=== PATIENT | female | born 1935 | race Caucasian/White ===

== ENCOUNTER 2017-06-15 16:45 | Inpatient (IN) | payer MEDICARE ==
[2017-06-15] MEDS ORDERED: Acetaminophen 650 MG Suppository ONE (17:45)
[2017-06-15] MEDS ORDERED: Acetaminophen 325 MG Suppository ONE (17:45)
[2017-06-15 17:46] LABS: #Eosinphils 0.1 thou/uL (0.0-0.7); #Lymphocytes 0.6 thou/uL (1.20-3.40); #Monocytes 0.5 thou/uL (0.11-0.59); #Neutrophils 8.6 thou/uL (1.40-6.50); %Basophils 0.3 % (0.0-1.0); %Eosinophils 0.9 % (0.0-10.0); %Lymphocytes 6.2 % (21.0-51.0); %Monocytes 4.6 % (0.0-10.0); %Neutrophils 88.1 % (42.0-75.0); Hemoglobin 11.9 g/dL (12.0-16.0); Mean Corpuscular HGB CONC 31.4 g/dL (32.0-36.0); Mean Corpuscular Hemoglobin 26.8 pg (27.0-31.0); Mean Corpuscular Volume 85.3 fl (81.0-99.0); Platelet Count 460 thou/uL (130-400); RBC Distribution Width 12.5 % (11.5-14.5); Red Blood Cell (RBC) Count 4.43 mill/uL (4.20-5.40); White Blood Cell (WBC) Count 9.8 thou/uL (4.8-10.8)
[2017-06-15 18:08] LABS: ALT (SGPT) 14 U/L (8-55); AST (SGOT) 23 U/L (5-34); Albumin 3.4 g/dL (3.4-4.8); Alkaline Phosphatase 77 U/L (40-150); Anion Gap 14 mmol/L (10-20); BUN (Urea Nitrogen) 11 mg/dL (9.8-20.1); Bilirubin, Total 0.5 mg/dL (0.2-1.2); CK (CPK) 118 U/L (29-168); Calc. Creatinine Clearance 0 mL/min (70-130); Calcium 8.8 mg/dL (7.8-10.44); Carbon Dioxide 28 mmol/L (23-31); Chloride 99 mmol/L (98-107); Estimated GFR-MDRD 87; Globulin 2.7 g/dL (2.4-3.5); Glucose 113 mg/dL (83-110); Protein, Total 6.1 g/dL (6.0-8.3); Sodium 138 mmol/L (136-145)
[2017-06-15 18:11] LABS: CKMB 2.1 ng/mL (0-6.6); Potassium 2.7 mmol/L (3.5-5.1)
[2017-06-15 18:28] LABS: Bilirubin Negative (Negative); Blood, Urine Negative (Negative); Clarity CLEAR (Clear); Glucose, Urine (Dipstick) Negative (Negative); Leukocyte Negative (Negative); Nitrite Negative (Negative); Protein, Urine (Dipstick) Negative (Neg-Trace); Specific Gravity, Urine 1.019 (1.002-1.036)
[2017-06-15] MEDS ORDERED: Piperacillin/Tazobactam 3.375 GM in Sodium Chloride 0.9% 100 ML IVPB SCH ×2 (18:30→23:59)
--- NOTE | 2017-06-15 19:13 | RAD ---
CHEST ONE VIEW: History: Cough and fever. Comparison: 08-12-16 FINDINGS: Small effusions. No pneumothorax. Heart size upper limits of normal. Likely ectatic vasculature in the right paratracheal region. There is some nodularity in the left lung base. IMPRESSION: 1. Small effusions. 2. Nodularity in the left lung base may reflect consolidation. There is also similar airspace consoli dation in the peripheral aspect of the right middle lobe. This is concerning for pneumonia. POS: [facility]
[2017-06-15] MEDS ORDERED: Potassium Chloride 20 MEQ TAB ONE (19:34)
[2017-06-15] MEDS ORDERED: Haloperidol Lactate 5 MG/ML VIAL SLOW IVP PRN (21:09)
[2017-06-15] MEDS ORDERED: Benzonatate 100 MG CAP PO PRN (21:09)
[2017-06-15] MEDS ORDERED: hydrALAZINE 20 MG/ML VIAL SLOW IVP PRN (21:09)
[2017-06-15] MEDS ORDERED: Acetaminophen 325 MG TAB PO PRN (21:09)
[2017-06-15] MEDS ORDERED: Ondansetron HCl/PF 4 MG/2 ML Vial IVP PRN (21:09)
[2017-06-16 00:30] LABS: Troponin I 0.075 ng/mL (< 0.028)
--- NOTE | 2017-06-16 00:59 | HP ---
CHIEF COMPLAINT: Shortness of breath, fever and altered mental state. HISTORY OF PRESENT ILLNESS: This is an 82-year-old resident of [facility], who comes into the hosp ital with altered mental state, fever and shortness of breath. It was associated with increased weak ness as well. The patient right now is altered mental state and most of the history is obtained from the ER physician and the chart. There is no family in the room. The patient according to the ER ph ysician was tachypneic, breathing at 35 to 48; and however, had a fever of 101 and was satting 90% on room air. The patient has been admitted for further evaluation and treatment of the pneumonia, whic h was seen in the right middle lobe on the chest x-ray. PAST MEDICAL HISTORY: Significant for coronary artery disease, GERD, hyperlipidemia, hypertension, a nd dementia. PAST SURGICAL HISTORY: Significant for hysterectomy, PTCA, surgery and left femoral neck fract ure. FAMILY HISTORY: Negative for diabetes and hypertension. SOCIAL HISTORY: Lives in a retirement. No history of smoking, drinking, or doing recreational roby gs. MEDICATIONS: Please see MAR. ALLERGIES: HYDROCODONE, KEFLEX, MORPHINE, PEANUTS, CRAB MEAT and SULFA. REVIEW OF SYSTEMS: Cannot be obtained as the patient is confused. PHYSICAL EXAMINATION: VITAL SIGNS: Blood pressure is 143/95. GENERAL: The patient is lying in bed, right now in no respiratory distress, was in respiratory distr ess earlier and has improved after breathing treatment. HEENT: His head is atraumatic, normocephalic. Pupils are equally round and reactive to light. Extr aocular movements are intact. Mucous membranes are moist. NECK: No JVD. CHEST: Breath sounds heard. Rhonchi present. Dependent crackles present. The patient was tachypne ic earlier at the examination of the ER physician. HEART: S1, S2 normal. No murmurs or gallops. ABDOMEN: Soft, obese. EXTREMITIES: No cyanosis, clubbing, or edema. Distal pulses present. NEUROLOGIC: The patient moves all 4 extremities, a little confused and does not follow commands. DIAGNOSTIC DATA: Chest x-ray shows small bilateral pleural effusions left lower lobe infiltrate and right middle lobe infiltrate. LABORATORY DATA: WBC count is 9.8, hemoglobin is 11. Potassium is 2.7, creatinine is 0.6. UA is ne gative. BNP is 208. Flu was positive for flu A. Chest x-ray show right middle lobe pneumonia. ASSESSMENT AND PLAN: 1. Sepsis secondary to community-acquired pneumonia secondary to the flu A. The patient will be put on Tamiflu and IV antibiotics. Blood cultures and urine cultures will be drawn and sputum culture w ill be done. Neb treatments will be given. We will follow the cultures and optimize the treatment. 2. Dementia probably altered mental state. The patient already has baseline dementia probably the p atient has a toxic encephalopathy secondary to the presence of infection. We will wait for the clear ing of the infection and reassess mental status. 3. Coronary artery disease, stable. 4. Hypertension, stable. 5. Hypokalemia, we will replace that. 6. Hyperlipidemia, stable. 7. Sequential compression devices for deep venous thrombosis prophylaxis. We will monitor the patient and do the need for.
[2017-06-16] MEDS: Albuterol Sulfate 1.25 MG/3 ML NEB NEB SCH ×4 (01:50→19:12)
[2017-06-16 04:25] LABS: #Basophils 0.1 thou/uL (0.0-0.2); #Lymphocytes 0.9 thou/uL (1.20-3.40); #Monocytes 0.5 thou/uL (0.11-0.59); #Neutrophils 5.4 thou/uL (1.40-6.50); %Basophils 0.8 % (0.0-1.0); %Eosinophils 0.7 % (0.0-10.0); %Lymphocytes 12.5 % (21.0-51.0); %Monocytes 7.4 % (0.0-10.0); %Neutrophils 78.7 % (42.0-75.0); Hemoglobin 10.1 g/dL (12.0-16.0); Mean Corpuscular HGB CONC 31.1 g/dL (32.0-36.0); Mean Corpuscular Hemoglobin 26.9 pg (27.0-31.0); Mean Corpuscular Volume 86.5 fl (81.0-99.0); Mean Platelet Volume 6.7 fL (7.4-10.4); Platelet Count 372 thou/uL (130-400); RBC Distribution Width 12.6 % (11.5-14.5); Red Blood Cell (RBC) Count 3.75 mill/uL (4.20-5.40); White Blood Cell (WBC) Count 6.8 thou/uL (4.8-10.8)
[2017-06-16 04:43] LABS: Anion Gap 12 mmol/L (10-20); BUN (Urea Nitrogen) 11 mg/dL (9.8-20.1); Calc. Creatinine Clearance 0 mL/min (70-130); Calcium 8.2 mg/dL (7.8-10.44); Carbon Dioxide 31 mmol/L (23-31); Chloride 101 mmol/L (98-107); Estimated GFR-MDRD 77; Glucose 85 mg/dL (83-110); Sodium 141 mmol/L (136-145)
[2017-06-16 05:04] LABS: Potassium 2.9 mmol/L (3.5-5.1)
[2017-06-16] MEDS: Potassium Chloride 20 MEQ TAB PO SCH ×3 (07:15→16:13)
[2017-06-16] MEDS ORDERED: Albuterol Sulfate 1.25 MG/3 ML NEB ONE ×2 (07:33→14:07)
[2017-06-16] MEDS: Docusate 100 MG CAP PO SCH ×4 (09:00→21:28)
[2017-06-16] MEDS: Sodium Chloride 0.9% 1,000 ML IV SCH ×3 (11:59→21:32)
[2017-06-16] MEDS: Oseltamivir 75 MG CAP PO SCH ×3 (11:59→21:28)
[2017-06-16 12:01] VITALS: BMI 25.7
[2017-06-16] MEDS: cefTRIAXone\\ROCEPHIN 2 GM in Sodium Chloride 0.9% 100 ML IVPB SCH (13:05)
[2017-06-16] MEDS ORDERED: Potassium Chloride 20 MEQ TAB ONE ×2 (13:14→16:06)
[2017-06-16] MEDS ORDERED: Acetaminophen 325 MG TAB ONE (13:15)
--- NOTE | 2017-06-16 13:20 | PDOC.PN ---
- Subjective Encounter Start Date: 06/16/17 Encounter Start Time: 11:30 Pt seen in ER holding, admitted overnight for pna, sepsis. Since then, Flu A positive, on Tmaiflu and was on zosyn and levoflox, narrows to Levoflox and rocephin. Still with sporadic fevers, currently 100.8, cough productive of green sputum. no n/v, no Chills, no CP, no d/C, some muscle aches. Pt states that overall she feels better, wa weaned off of O2 ealrier. Daughter at bedside, updated. 10 point ROS performed and neg for all systems except as above - Objective MAR Reviewed: Yes Vital Signs & Weight: Vital Signs (12 hours) Temp Pulse Resp BP Pulse Ox 06/16/17 09:35 100.8 F H 67 16 137/77 06/16/17 08:00 74 19 126/70 94 L 06/16/17 07:47 63 16 95 06/16/17 01:50 80 16 99 Weight Weight 145 lb Result Diagrams: 06/16/17 04:12 06/16/17 04:12 Radiology Reviewed by me: Yes EKG Reviewed by me: Yes Phys Exam - Physical Examination Constitutional: NAD HEENT: PERRLA, moist MMs, sclera anicteric, oral pharynx no lesions Neck: no nodes, no JVD, supple, full ROM bibasilar rales, good air movement, strong cough, no wheezing Cardiovascular: RRR, no significant murmur, no rub Gastrointestinal: soft, non-tender, no distention, positive bowel sounds Musculoskeletal: pulses present, edema present Neurological: non-focal, normal sensation, moves all 4 limbs Lymphatic: no nodes Psychiatric: normal affect Skin: no rash, normal turgor, cap refill <2 seconds Dx/Plan (1) Influenza A Code(s): J10.1 - FLU DUE TO OTH IDENT INFLUENZA VIRUS W OTH RESP MANIFEST Status: Acute Comment: Tamiflu BID X 7 days (2) Community acquired pneumonia due to influenza A virus Code(s): J09.X1 - INFLUENZA DUE TO IDENT NOVEL INFLUENZA A VIRUS W PNEUMONIA Status: Acute Comment: covering for CAP with CTX and levoflox, stop CTX tomorrow (3) Sepsis Code(s): A41.9 - SEPSIS, UNSPECIFIED ORGANISM Status: Acute Plan: influenza A (4) Alzheimer's dementia Code(s): G30.9 - ALZHEIMER'S DISEASE, UNSPECIFIED Status: Chronic Qualifiers: Alzheimer's disease onset: unspecified onset Dementia behavioral disturbance: without behavioral disturbance Qualified Code(s): G30.9 - Alzheimer's disease, unspecified; F02.80 - Dementia in other diseases classified elsewhere without behavioral disturbance; F02.80 - Dementia in other diseases classified elsewhere without behavioral disturbance; F02.80 - Dementia in other diseases classified elsewhere without behavioral disturbance (5) History of coronary artery disease Code(s): Z86.79 - PERSONAL HISTORY OF OTHER DISEASES OF THE CIRCULATORY SYSTEM Status: Chronic (6) HTN (hypertension) Code(s): I10 - ESSENTIAL (PRIMARY) HYPERTENSION Status: Chronic Qualifiers: Hypertension type: essential hypertension Qualified Code(s): I10 - Essential (primary) hypertension - Plan cont current plan of care, plan discussed w/ family, continue antibiotics, PT/OT , respiratory therapy, DVT proph w/lovenox * .
[2017-06-16] MEDS ORDERED: Albuterol Sulfate 2.5 mg/3 ml Neb NEB PRN (13:26)
[2017-06-17] MEDS: Albuterol Sulfate 1.25 MG/3 ML NEB NEB SCH ×4 (00:04→18:41)
[2017-06-17 05:39] LABS: #Lymphocytes 1.1 thou/uL (1.20-3.40); #Monocytes 0.4 thou/uL (0.11-0.59); #Neutrophils 3.5 thou/uL (1.40-6.50); %Basophils 0.3 % (0.0-1.0); %Eosinophils 0.5 % (0.0-10.0); %Lymphocytes 21.7 % (21.0-51.0); %Monocytes 7.9 % (0.0-10.0); %Neutrophils 69.6 % (42.0-75.0); Hemoglobin 10.3 g/dL (12.0-16.0); Mean Corpuscular HGB CONC 30.2 g/dL (32.0-36.0); Mean Corpuscular Hemoglobin 25.9 pg (27.0-31.0); Mean Corpuscular Volume 85.8 fl (81.0-99.0); Mean Platelet Volume 6.9 fL (7.4-10.4); Platelet Count 375 thou/uL (130-400); RBC Distribution Width 12.7 % (11.5-14.5); Red Blood Cell (RBC) Count 3.98 mill/uL (4.20-5.40)
[2017-06-17 06:00] LABS: Anion Gap 14 mmol/L (10-20); BUN (Urea Nitrogen) 7 mg/dL (9.8-20.1); Calc. Creatinine Clearance 74 mL/min (70-130); Calcium 7.8 mg/dL (7.8-10.44); Carbon Dioxide 27 mmol/L (23-31); Chloride 101 mmol/L (98-107); Estimated GFR-MDRD Greater than 90; Glucose 74 mg/dL (83-110); Magnesium 1.4 mg/dL (1.6-2.6); Potassium 3.6 mmol/L (3.5-5.1); Sodium 138 mmol/L (136-145)
[2017-06-17] MEDS ORDERED: Magnesium Sulfate 3 GM in Sodium Chloride 0.9% 100 ML IVPB SCH (08:15)
[2017-06-17] MEDS: cefTRIAXone\\ROCEPHIN 2 GM in Sodium Chloride 0.9% 100 ML IVPB SCH (08:32)
[2017-06-17] MEDS: Docusate 100 MG CAP PO SCH ×2 (08:33→21:17)
[2017-06-17] MEDS: Oseltamivir 75 MG CAP PO SCH ×2 (08:33→21:17)
[2017-06-17] MEDS: Sodium Chloride 0.9% 1,000 ML IV SCH ×2 (08:33→16:18)
[2017-06-17] MEDS ORDERED: Prevnar 13-Val Conj/PF 0.5 ML SYRINGE IM ONE (09:00)
--- NOTE | 2017-06-17 14:00 | CON ---
DATE OF CONSULTATION: 06/17/2017 REASON FOR CONSULTATION: Pneumonia. HISTORY OF PRESENT ILLNESS: An 82-year-old with history of dementia, most likely due to Alzheimer di sease, coronary disease, and prior fractures in upper and lower extremities, who is a [facility] and developed weakness, delirium associated with fever and tachypnea. Initial find ings; blood pressure 143/95, pulse 76, respiratory rate 20, temperature 101, O2 sat 90% room air. Ac cording to the nursing staff, there had been no diarrhea. No seizure activity, no fall. 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 FAMILY HISTORY: Noncontributory. SOCIAL HISTORY: group home resident. Never a smoker. CURRENT MEDICATIONS: Tylenol, albuterol, Ventolin, Tessalon, ceftriaxone, Colace, Haldol, Apresoline , levofloxacin, magnesium, Namenda, Zofran, Tamiflu PHYSICAL EXAMINATION: VITAL SIGNS: T-max 101.2. She is now down to 99.2, blood pressure 160/77, pulse 65, respirations 18 , O2 saturation 98%. GENERAL: Appears in no distress, coughing intermittently. She is unable to interact with examiner d ue to the cognitive dysfunction. Her daughter is in the room. The patient has one area in the back of slight pressure damage in the presacral region. This is very early on. Peripheral IV access. Sh e is voiding spontaneously. No lymphadenopathy. HEENT: Ocular movements are conjugate. The patient has a few remaining teeth in the lower mandible. NECK: Supple neck. HEART: S1, S2, regular rate. No S3 or S4. ABDOMEN: Soft. LUNGS: With symmetric air entry with few crackles at the right base. : No bladder distention. EXTREMITIES: No joint inflammatory activity. She has somewhat diffuse stiffness. She is able to mo ve extremities. NEUROLOGIC: Plantar responses are flexure. She is awake, does not interact with examiner. Does not establish eye contact. Does not follow commands. LABORATORY DATA: White cell count 9.8 and now only 5.0, hemoglobin down to 10.3, MCV 85, platelets 3 75. Normal differential, on arrival she had 88% neutrophils. Chemistry was fairly unremarkable exce pt for hypomagnesemia. The liver panel is normal. Troponin a little bit high, BNP a little bit high , albumin 3.4. Urinalysis fairly unremarkable. Microbiology with influenza A antigen test positive. Urine culture no growth. No blood cultures submitted. Chest x-ray with small effusions, nodularity left lung base and also in the peripheral aspect right m iddle lobe. ASSESSMENT: 1. Dementia. 2. Acute influenza A infection. 3. Possible associated bacterial pneumonia. Discontinue levofloxacin. Continue Rocephin alone for a few days and then discontinue it. Continue Tamiflu for 5 days. Swallowing study should be considered.
--- NOTE | 2017-06-17 14:29 | PDOC.PN ---
- Subjective Encounter Start Date: 06/17/17 Encounter Start Time: 10:00 feeling better, MS back to baseline, no F/C overnight, VSS. No N/V/D/C, no C, no SOB, [place] O2. ST to see, PT OT pending 10 point ROS performed and neg for all systems except as above. - Objective MAR Reviewed: Yes Vital Signs & Weight: Vital Signs (12 hours) Temp Pulse Resp BP Pulse Ox 06/17/17 12:00 92 L 06/17/17 11:44 98.6 F 63 20 163/84 H 95 06/17/17 08:01 99.2 F 65 18 167/77 H 98 06/17/17 08:00 99.2 F 65 18 98 06/17/17 07:37 67 16 94 L 06/17/17 04:23 98.9 F 71 18 153/68 H 97 Weight Admit Weight 145 lb Weight 145 lb Result Diagrams: 06/17/17 05:03 06/17/17 05:03 Radiology Reviewed by me: Yes EKG Reviewed by me: Yes Phys Exam - Physical Examination Constitutional: NAD HEENT: PERRLA, moist MMs, sclera anicteric, oral pharynx no lesions Neck: no nodes, no JVD, supple, full ROM Respiratory: no wheezing, no rales, no rhonchi, clear to auscultation bilateral Cardiovascular: RRR, no significant murmur, no rub Gastrointestinal: soft, non-tender, no distention, positive bowel sounds Musculoskeletal: no edema, pulses present Neurological: non-focal, normal sensation, moves all 4 limbs Lymphatic: no nodes Psychiatric: normal affect Skin: no rash, normal turgor, cap refill <2 seconds Dx/Plan (1) Influenza A Code(s): J10.1 - FLU DUE TO OTH IDENT INFLUENZA VIRUS W OTH RESP MANIFEST Status: Acute Comment: Tamiflu BID X 5 days total, 2 to go (2) Community acquired pneumonia due to influenza A virus Code(s): J09.X1 - INFLUENZA DUE TO IDENT NOVEL INFLUENZA A VIRUS W PNEUMONIA Status: Acute Comment: covering for CAP with CTX and levoflox, levoflox stopped by ID, i assume consulted on admit. on CTX alone (3) Sepsis Code(s): A41.9 - SEPSIS, UNSPECIFIED ORGANISM Status: Acute Comment: influenza A (4) Alzheimer's dementia Code(s): G30.9 - ALZHEIMER'S DISEASE, UNSPECIFIED Status: Chronic Qualifiers: Alzheimer's disease onset: unspecified onset Dementia behavioral disturbance: without behavioral disturbance Qualified Code(s): G30.9 - Alzheimer's disease, unspecified; F02.80 - Dementia in other diseases classified elsewhere without behavioral disturbance; F02.80 - Dementia in other diseases classified elsewhere without behavioral disturbance; F02.80 - Dementia in other diseases classified elsewhere without behavioral disturbance (5) History of coronary artery disease Code(s): Z86.79 - PERSONAL HISTORY OF OTHER DISEASES OF THE CIRCULATORY SYSTEM Status: Chronic (6) HTN (hypertension) Code(s): I10 - ESSENTIAL (PRIMARY) HYPERTENSION Status: Chronic Qualifiers: Hypertension type: essential hypertension Qualified Code(s): I10 - Essential (primary) hypertension - Plan cont current plan of care, continue antibiotics, PT/OT, speech therapy, out of bed/ambulate * .
[2017-06-18] MEDS: Albuterol Sulfate 1.25 MG/3 ML NEB NEB SCH ×2 (00:33→08:07)
[2017-06-18] MEDS: Sodium Chloride 0.9% 1,000 ML IV SCH (02:22)
[2017-06-18 05:43] LABS: #Basophils 0.1 thou/uL (0.0-0.2); #Monocytes 0.3 thou/uL (0.11-0.59); #Neutrophils 2.4 thou/uL (1.40-6.50); %Basophils 1.7 % (0.0-1.0); %Eosinophils 1.3 % (0.0-10.0); %Lymphocytes 25.3 % (21.0-51.0); %Monocytes 8.9 % (0.0-10.0); %Neutrophils 62.8 % (42.0-75.0); Hemoglobin 11.4 g/dL (12.0-16.0); Mean Corpuscular HGB CONC 32.1 g/dL (32.0-36.0); Mean Corpuscular Hemoglobin 27.5 pg (27.0-31.0); Mean Corpuscular Volume 85.6 fl (81.0-99.0); Mean Platelet Volume 7.2 fL (7.4-10.4); Platelet Count 356 thou/uL (130-400); RBC Distribution Width 12.7 % (11.5-14.5); Red Blood Cell (RBC) Count 4.15 mill/uL (4.20-5.40); White Blood Cell (WBC) Count 3.9 thou/uL (4.8-10.8)
[2017-06-18 06:25] LABS: Anion Gap 13 mmol/L (10-20); BUN (Urea Nitrogen) 5 mg/dL (9.8-20.1); Calc. Creatinine Clearance 79 mL/min (70-130); Calcium 7.8 mg/dL (7.8-10.44); Carbon Dioxide 26 mmol/L (23-31); Chloride 102 mmol/L (98-107); Estimated GFR-MDRD Greater than 90; Glucose 74 mg/dL (83-110); Magnesium 1.9 mg/dL (1.6-2.6); Potassium 3.1 mmol/L (3.5-5.1); Sodium 138 mmol/L (136-145)
[2017-06-18 07:54] VITALS: BP 141/78; TEMP 98
[2017-06-18] MEDS: cefTRIAXone\\ROCEPHIN 2 GM in Sodium Chloride 0.9% 100 ML IVPB SCH (09:35)
[2017-06-18] MEDS: Docusate 100 MG CAP PO SCH (09:38)
[2017-06-18] MEDS: Oseltamivir 75 MG CAP PO SCH (09:38)
--- NOTE | 2017-06-19 15:10 | DIS ---
DATE OF ADMISSION: 06/15/2017 DATE OF DISCHARGE: 06/18/2017 PRIMARY CARE PHYSICIAN: Chano Duenas M.D. DISCHARGE DIAGNOSES: 1. Influenza A. 2. Community-acquired pneumonia secondary to influenza A. 3. Sepsis, present on admission. 4. Alzheimer's type dementia. 5. Coronary artery disease, history without angina. 6. Hypertension, essential, chronic. CONSULTATIONS: Dr. Reggie Tuttle on 06/17/2017. HISTORY AND PHYSICAL: Ms. Saunders is an 82-year-old female with the above history who presents to [facility] emergency department with shortness of breath, fever, and altered mental state on 06/15/2017. She lives in [facility], who came to the hospital with his altered mental status, fever, shortness of breath with weakness. Originally on arrival, she was tachypneic, breathing 35-48. She had a tempera ture of 101 with satting 90% on room air, recently being called for admission. HOSPITAL COURSE: The patient was seen and examined by Dr. Almonte. She was started on Levaquin and Tamiflu due to a chest x-ray being positive for right middle lobe pneumonia and flu screen posit smooth for flu A. She was given neb treatments. Started on IV fluids, and placed in inpatient service. Overnight 06/16/2017 to 06/17/2017, I took over the case. The patient was seen initially by Dr. Blanchard s the day as admitting physician had requested. He recommended stopping the Levaquin and going to ce ftriaxone alone for a few days, continue the Tamiflu. Later that day, the patient was doing better. From 06/16/2017 to 06/17/2017, patient does not have any further problem. She is afebrile. Mental s tatus back to baseline. She was tolerating p.o. Speech therapy, PT and OT were pending. By 06/18/2017, she remained normal. She was cleared for PT, OT, and ST with normal function. She wa s discharged back to [facility] in stable condition. Patient was seen and examined on the day of discharge. Discharge plan and disposition was discussed with the patient face to face at the bedside with the kev aranda. DISCHARGE MEDICATIONS: 1. Tessalon Perles 100 mg p.o. q.4 hours p.r.n. 2. Levofloxacin 500 mg daily for 4 more days. 3. Oseltamivir 75 mg p.o. b.i.d. to complete a total of 10 doses. To resume her regular home medications including, 1. Cholecalciferol 1000 units daily. 2. Zoloft 25 mg daily. 3. MiraLax 17 grams daily p.r.n. 4. Memantine 10 mg p.o. b.i.d. 5. Tylenol regular strength as needed. 6. Ascorbic acid 500 mg b.i.d. 7. Aspirin 81 mg daily. 8. Dulcolax 100 mg daily. 9. Fergon 324 mg p.o. b.i.d. 10. Magnesium hydroxide 30 mL p.o. daily as needed for constipation. 11. Multivitamin daily. 12. Zofran 4 mg q.6 hours p.r.n. 13. Guaifenesin/dextromethorphan 10 mL q.4 hours p.r.n. 14. Omeprazole 20 mg daily. 15. Mirtazapine 50 mg p.o. at bedtime. 16. Tramadol as needed. DISCHARGE ACTIVITY: As tolerated. DISCHARGE DIET: Heart healthy recommended. DISCHARGE INSTRUCTIONS: Stable. DISPOSITION: Will be discharged back to [facility] with home health care for physi deyanira therapy and occupational therapy. FOLLOWUP APPOINTMENTS: Primary care physician within a week.
== END 2017-06-18 15:18 | DRG 871 ==
LOC: ERS 16:45 → ERHOLD 20:38 → T4-A 06-16 16:35
PROVIDERS: ADMIT Internal Medicine; ATTEND Internal Medicine
DX: A41.9 Sepsis, unspecified organism (principal); J10.08 Influenza due to other identified influenza virus with other specified pneumonia; G92 Toxic encephalopathy; G30.9 Alzheimer's disease, unspecified; F02.80 Dementia in other diseases classified elsewhere, unspecified severity, without behavioral disturbance, psychotic disturbance, mood disturbance, and anxiety; I25.10 Atherosclerotic heart disease of native coronary artery without angina pectoris; K21.9 Gastro-esophageal reflux disease without esophagitis; E87.6 Hypokalemia; Z88.2 Allergy status to sulfonamides; Z88.1 Allergy status to other antibiotic agents; Z88.5 Allergy status to narcotic agent; Z91.010 Allergy to peanuts; Z91.013 Allergy to seafood; Z87.81 Personal history of (healed) traumatic fracture; Z95.5 Presence of coronary angioplasty implant and graft
CPT/HCPCS: 36415; 51701; 71045; 80048; 80053; 81003; 82553; 83605; 83735; 83880; 84484; 85025; 87040; 87070; 87086; 87205; 87804; 94640; 96361; 96365; 96366; 96367; A4353; G8978-GP-CK; G8979-GP-CJ; G8987-GO-CK; G8988-GO-CJ; G9162-GN-CL; G9163-GN-CK; J0696; J1956; J2543; J3370; J3475; J7050; J7620

== ENCOUNTER 2017-09-03 15:11 | Emergency (ER) | payer MEDICARE ==
--- NOTE | 2017-09-03 16:44 | RAD ---
THREE VIEWS OF THE LEFT WRIST: INDICATION: Left wrist pain. COMPARISON: Prior exam dated 08/12/16. FINDINGS: There has been interval healing of the instrumented distal radius and distal ulnar fractures. One of these may project within the radial lunate articulation. This screw is third from the radial styloi d. 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 There is diffuse osteopenia. There i s soft tissue swelling surrounding the right forearm. IMPRESSION: 1. Interval healing in instrumented distal radius fracture. One of the screws within the locked denise te and screw construct, third from the radial styloid, projects into the radiolunate articulation. 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 2. Extensive soft tissue swelling surrounding the left wrist is new from the comparison. POS: [facility]
== END 2017-09-03 17:15 | disposition home or self-care (01) ==
LOC: ERS 15:11
DX: S50.12XA Contusion of left forearm, initial encounter (principal); G30.9 Alzheimer's disease, unspecified; F02.80 Dementia in other diseases classified elsewhere, unspecified severity, without behavioral disturbance, psychotic disturbance, mood disturbance, and anxiety; E78.5 Hyperlipidemia, unspecified; I10 Essential (primary) hypertension; M81.0 Age-related osteoporosis without current pathological fracture; I25.9 Chronic ischemic heart disease, unspecified; Z79.899 Other long term (current) drug therapy; X58.XXXA Exposure to other specified factors, initial encounter